=== PATIENT | male | born 1940 | race Caucasian/White ===

== ENCOUNTER → 2016-09-11 | Outpatient (CLI) | payer MEDICARE | END | disposition home or self-care (01) | LOC: LAB 11:19 | PROVIDERS: ATTEND Internal Medicine | DX: C92.10 Chronic myeloid leukemia, BCR/ABL-positive, not having achieved remission (principal); R06.02 Shortness of breath | CPT/HCPCS: 36415; 83880; 85025; 85379 ==

== ENCOUNTER → 2016-09-11 | Outpatient (CLI) | payer MEDICARE | END | disposition home or self-care (01) | LOC: CFH 10:42 | PROVIDERS: ATTEND Internal Medicine | DX: J90 Pleural effusion, not elsewhere classified (principal) | CPT/HCPCS: 71020 ==

== ENCOUNTER → 2016-11-05 | Outpatient (CLI) | payer MEDICARE ==
[~2016-11-05] MED LIST: LIDOCAINE 2%, 20ML ONE
[2016-11-05 13:10] LABS: CYTOLOGY BODY FLUID RECD INTO PATHOLOGY; CYTOLOGY BODY FLUID SOURCE PLEURAL FLUID
== END | disposition home or self-care (01) ==
LOC: RAD 11:17
PROVIDERS: ATTEND Internal Medicine Hematology & Oncology
DX: J90 Pleural effusion, not elsewhere classified (principal); J98.11 Atelectasis; C92.10 Chronic myeloid leukemia, BCR/ABL-positive, not having achieved remission
CPT/HCPCS: 32555; 71020; 82150; 82945; 83615; 83986; 84157; 87015; 87070; 87075; 87102; 87116; 87205; 87206; 88112; 89051; J3490

== ENCOUNTER 2016-12-28 15:03 | Inpatient (IN) | payer MEDICARE ==
[~2016-12-28] VITALS: Ht 177.8 cm; Wt 94.8 kg
[2016-12-28] MEDS ORDERED: SODIUM CHLORIDE 0.9% 1,000 ML IV ONE (15:23)
[2016-12-28] MEDS ORDERED: PIPERACILLIN/TAZO/PMX 4.5GM 100 ML IVPB ONE (15:30)
[2016-12-28] MEDS ORDERED: SODIUM CHLORIDE 0.9% 1,000ML IVBOLUS ONE (15:30)
[2016-12-28] MEDS ORDERED: VANCOMYCIN PER PHARMACY MC ONE (15:30)
[2016-12-28] MEDS ORDERED: ACETAMINOPHEN 325 MG TABLET PO ONE (15:30)
[2016-12-28] MEDS ORDERED: ACETAMINOPHEN 325 MG TABLET ONE (15:47)
[2016-12-28 15:55] LABS: HEMATOCRIT 43.1 % (39.2-51.8); HEMOGLOBIN 14.3 g/dL (13.7-18.0); WHITE BLOOD COUNT 8.5 x10^3/uL (3.4-10)
[2016-12-28] MEDS ORDERED: VANCOMYCIN 1,800 MG in SODIUM CHLORIDE 0.9% 250 ML IV ONE (16:00)
[2016-12-28] MEDS ORDERED: PHARMACOKINETIC CONSULTATION MC ONE ×2 (16:00→21:00)
[2016-12-28 16:09] LABS: ASPARTATE AMINO TRANSFERASE 23 U/L (15-37); BLOOD UREA NITROGEN 13 mg/dL (7-18)
[2016-12-28] MEDS ORDERED: DIPH,PERTUSS(ACELL),TET VAC/PF 0.5 ML IM-VACC ONE ×2 (16:30→17:45)
[2016-12-28 16:48] LABS: PATH.CAST-FLAG NOT PRESENT; SPERM-FLAG NOT PRESENT; SRC-FLAG NOT PRESENT; XTAL-FLAG NOT PRESENT; YLC-FLAG NOT PRESENT
[2016-12-28] MEDS ORDERED: ALLO100T30 PO (17:43)
[2016-12-28] MEDS ORDERED: LISI40TA PO (17:43)
[2016-12-28] MEDS ORDERED: ATOR40TA78 PO (17:43)
[2016-12-28] MEDS ORDERED: TRAV5DRO OP (17:43)
[2016-12-28] MEDS ORDERED: DASA100T PO (17:43)
[2016-12-28 19:41] VITALS: BP 144/80
[2016-12-28] MEDS ORDERED: ONDANSETRON ODT 4 MG PO PRN (20:30)
[2016-12-28] MEDS ORDERED: TEMAZEPAM 15 MG CAPSULE PO PRN (20:30)
[2016-12-28] MEDS ORDERED: DOCUSATE 100 MG CAPSULE PO PRN (20:30)
[2016-12-28] MEDS ORDERED: VANCOMYCIN PER PHARMACY MC PRN (20:30)
[2016-12-28] MEDS ORDERED: ENALAPRILAT 1.25 MG/ML, 2ML IVPush PRN (20:30)
[2016-12-28] MEDS ORDERED: ACETAMINOPHEN 325 MG TABLET PO PRN (21:00)
[2016-12-28] MEDS ORDERED: PHARMACOKINETIC MONITORING MC PRN (21:00)
[2016-12-28] MEDS: ATORVASTATIN 40 MG TABLET PO SCH (21:43)
[2016-12-28] MEDS: SODIUM CHLORIDE 0.9% 1,000 ML IV SCH (21:43)
[2016-12-28] MEDS: LISINOPRIL 20 MG TABLET PO SCH (21:44)
[2016-12-28] MEDS: ENOXAPARIN 40 MG/0.4 ML SQ SCH (21:45)
[2016-12-28] MEDS: GUAIFENESIN 100 MG/5 ML, 10ML UDC PO PRN (21:49)
[2016-12-28] MEDS: TRAVOPROST OPHTH 0.004%, 2.5ML OP SCH (22:18)
[2016-12-29 01:02] VITALS: BP 140/70
[2016-12-29] MEDS: PIPERACILLIN/TAZO/PMX 4.5GM 100 ML IV SCH ×2 (01:13→09:23)
[2016-12-29] MEDS: GUAIFENESIN 100 MG/5 ML, 10ML UDC PO PRN ×3 (04:30→22:02)
[2016-12-29] MEDS: SODIUM CHLORIDE 0.9% 1,000 ML IV SCH ×3 (04:31→18:38)
[2016-12-29 04:34] LABS: HEMATOCRIT 40.3 % (39.2-51.8); HEMOGLOBIN 13.6 g/dL (13.7-18.0); WHITE BLOOD COUNT 6.6 x10^3/uL (3.4-10)
[2016-12-29 04:45] LABS: BLOOD UREA NITROGEN 11 mg/dL (7-18)
[2016-12-29 07:30] VITALS: BP 140/69
[2016-12-29] MEDS: ALLOPURINOL 100 MG TABLET PO SCH (08:55)
[2016-12-29] MEDS: DASATINIB 100 MG HOMEMEDPO SCH (09:00)
[2016-12-29 13:55] VITALS: BP 129/71
[2016-12-29] MEDS: MEROPENEM 1 GM in SODIUM CHLORIDE 0.9% 100 ML IV SCH ×2 (14:38→21:26)
[2016-12-29] MEDS: VANCOMYCIN 1,800 MG in SODIUM CHLORIDE 0.9% 250 ML IV SCH (18:36)
[2016-12-29] MEDS: TRAVOPROST OPHTH 0.004%, 2.5ML OP SCH (20:35)
[2016-12-29] MEDS: LISINOPRIL 20 MG TABLET PO SCH (20:37)
[2016-12-29] MEDS: ATORVASTATIN 40 MG TABLET PO SCH (20:37)
[2016-12-29 20:59] VITALS: BP 161/75
[2016-12-29] MEDS: ENOXAPARIN 40 MG/0.4 ML SQ SCH (21:26)
[2016-12-30 02:56] VITALS: BP 138/73
[2016-12-30 04:35] LABS: HEMATOCRIT 39.1 % (39.2-51.8); WHITE BLOOD COUNT 6.5 x10^3/uL (3.4-10)
[2016-12-30 04:47] LABS: BLOOD UREA NITROGEN 10 mg/dL (7-18)
[2016-12-30] MEDS: SODIUM CHLORIDE 0.9% 1,000 ML IV SCH ×2 (05:08→11:23)
[2016-12-30] MEDS: MEROPENEM 1 GM in SODIUM CHLORIDE 0.9% 100 ML IV SCH ×3 (05:09→20:08)
[2016-12-30 07:30] VITALS: BP 145/78
[2016-12-30] MEDS: ALLOPURINOL 100 MG TABLET PO SCH (07:59)
[2016-12-30] MEDS: GUAIFENESIN 100 MG/5 ML, 10ML UDC PO PRN (07:59)
[2016-12-30] MEDS: DASATINIB 100 MG HOMEMEDPO SCH (07:59)
[2016-12-30] MEDS ORDERED: POTASSIUM PHOSPHATE 44 MEQ in SODIUM CHLORIDE 0.9% 500 ML IV ONE (10:00)
[2016-12-30 12:30] VITALS: BP 159/84
[2016-12-30] MEDS: VANCOMYCIN 1,800 MG in SODIUM CHLORIDE 0.9% 250 ML IV SCH (17:24)
[2016-12-30] MEDS ORDERED: FUROSEMIDE 20 MG/2 ML IV ONE (18:30)
[2016-12-30 19:46] VITALS: BP_SYST 181; BP_SYST 182; BP_DIAS 78; BP_DIAS 98
[2016-12-30] MEDS: TRAVOPROST OPHTH 0.004%, 2.5ML OP SCH (20:08)
[2016-12-30] MEDS: ENOXAPARIN 40 MG/0.4 ML SQ SCH (20:08)
[2016-12-30] MEDS: ATORVASTATIN 40 MG TABLET PO SCH (20:08)
[2016-12-30] MEDS: LISINOPRIL 20 MG TABLET PO SCH (20:09)
[2016-12-31 00:42] VITALS: BP 167/73
[2016-12-31 05:21] LABS: BLOOD UREA NITROGEN 10 mg/dL (7-18)
[2016-12-31 05:22] LABS: HEMATOCRIT 39.9 % (39.2-51.8); HEMOGLOBIN 13.2 g/dL (13.7-18.0); WHITE BLOOD COUNT 5.1 x10^3/uL (3.4-10)
[2016-12-31] MEDS: MEROPENEM 1 GM in SODIUM CHLORIDE 0.9% 100 ML IV SCH ×3 (05:26→21:23)
[2016-12-31 05:31] VITALS: BP 154/74
[2016-12-31 07:16] VITALS: BP 132/73
[2016-12-31] MEDS: DASATINIB 100 MG HOMEMEDPO SCH (07:20)
[2016-12-31] MEDS: ALLOPURINOL 100 MG TABLET PO SCH (07:22)
[2016-12-31] MEDS ORDERED: POTASSIUM CHLORIDE 40 MEQ in SODIUM CHLORIDE 0.9% 500 ML IV ONE (09:30)
[2016-12-31] MEDS ORDERED: POTASSIUM PHOSPHATE 44 MEQ in SODIUM CHLORIDE 0.9% 500 ML IV ONE (09:30)
[2016-12-31 13:26] VITALS: BP 156/93
[2016-12-31] MEDS: VANCOMYCIN 1,800 MG in SODIUM CHLORIDE 0.9% 250 ML IV SCH (18:01)
[2016-12-31 19:27] VITALS: BP 177/82
[2016-12-31] MEDS: TRAVOPROST OPHTH 0.004%, 2.5ML OP SCH (20:45)
[2016-12-31] MEDS: ATORVASTATIN 40 MG TABLET PO SCH (20:46)
[2016-12-31] MEDS: ENOXAPARIN 40 MG/0.4 ML SQ SCH (20:46)
[2016-12-31] MEDS: LISINOPRIL 20 MG TABLET PO SCH (20:46)
[2017-01-01 01:48] VITALS: BP 170/80
[2017-01-01 04:59] LABS: HEMATOCRIT 39.7 % (39.2-51.8); HEMOGLOBIN 13.2 g/dL (13.7-18.0); WHITE BLOOD COUNT 4.3 x10^3/uL (3.4-10)
[2017-01-01 05:11] LABS: BLOOD UREA NITROGEN 10 mg/dL (7-18)
[2017-01-01] MEDS: MEROPENEM 1 GM in SODIUM CHLORIDE 0.9% 100 ML IV SCH (05:38)
[2017-01-01 07:36] VITALS: BP 149/96
[2017-01-01] MEDS: ALLOPURINOL 100 MG TABLET PO SCH (08:28)
[2017-01-01] MEDS: DASATINIB 100 MG HOMEMEDPO SCH (08:28)
[2017-01-01] MEDS ORDERED: VANCOMYCIN 1,900 MG in SODIUM CHLORIDE 0.9% 250 ML IV SCH (10:00)
[2017-01-01] MEDS ORDERED: DOCU-131 PO (12:48)
[2017-01-01] MEDS ORDERED: DOXY100T10 PO (12:48)
[2017-01-01] MEDS ORDERED: CEFD300C37 PO (12:48)
[2017-01-01] MEDS ORDERED: MULT-412 PO (12:51)
== END 2017-01-01 14:00 | disposition home or self-care (01) | DRG 602 ==
LOC: ED 15:31 → EDIP 18:11 → 3NW 19:22
PROVIDERS: ADMIT Internal Medicine; ATTEND Internal Medicine
DX: L03.211 Cellulitis of face (principal); J15.9 Unspecified bacterial pneumonia; C92.10 Chronic myeloid leukemia, BCR/ABL-positive, not having achieved remission; I11.9 Hypertensive heart disease without heart failure; E87.1 Hypo-osmolality and hyponatremia; J98.11 Atelectasis; E83.39 Other disorders of phosphorus metabolism; E78.5 Hyperlipidemia, unspecified; E87.6 Hypokalemia; S50.312A Abrasion of left elbow, initial encounter; Z80.1 Family history of malignant neoplasm of trachea, bronchus and lung; Z80.42 Family history of malignant neoplasm of prostate
CPT/HCPCS: 36415; 71010; 80048; 80053; 80202; 81001; 83605; 83735; 84100; 84145; 85025; 85610; 87040; 87324; 90471; 90715; 93005; 96361; 96365; J1650; J2185; J2543; J3370; J3480; J1940; J7030; J7040; J7050

== ENCOUNTER → 2017-04-01 | Outpatient (CLI) | payer MEDICARE ==
[~2017-04-01] MED LIST changes: +ALLO100T30 PO; +ATOR40TA78 PO; +CEFD300C37 PO; +DASA100T PO; +DOCU-131 PO; +DOXY100T10 PO; -LIDOCAINE 2%, 20ML ONE; +LISI40TA PO; +MULT-412 PO; +TRAV5DRO OP
== END | disposition home or self-care (01) ==
LOC: CFH 09:13
PROVIDERS: ATTEND Internal Medicine
DX: J32.0 Chronic maxillary sinusitis (principal); J32.2 Chronic ethmoidal sinusitis; J32.1 Chronic frontal sinusitis
CPT/HCPCS: 70551

== ENCOUNTER → 2017-04-06 | Outpatient (CLI) | payer MEDICARE | END | disposition home or self-care (01) | LOC: CVU 13:50 | PROVIDERS: ATTEND Internal Medicine | DX: I08.0 Rheumatic disorders of both mitral and aortic valves (principal); I31.3 Pericardial effusion (noninflammatory); J90 Pleural effusion, not elsewhere classified; I65.23 Occlusion and stenosis of bilateral carotid arteries; I10 Essential (primary) hypertension; Z85.6 Personal history of leukemia | CPT/HCPCS: 93306; 93880 ==

== ENCOUNTER → 2017-05-05 | Outpatient (CLI) | payer MEDICARE ==
[~2017-05-05] MED LIST changes: +OMNIPAQUE 350 MG/ML, 75ML BOTTLE ONE
== END | disposition home or self-care (01) ==
LOC: CFH 12:58
PROVIDERS: ATTEND Internal Medicine
DX: J90 Pleural effusion, not elsewhere classified (principal); J98.11 Atelectasis; J84.10 Pulmonary fibrosis, unspecified; R91.1 Solitary pulmonary nodule; I31.3 Pericardial effusion (noninflammatory)
CPT/HCPCS: 71260; 82565; Q9967

== ENCOUNTER → 2017-05-14 | Outpatient (CLI) | payer MEDICARE ==
[~2017-05-14] MED LIST changes: +LIDOCAINE 1%, 10ML ONE; -OMNIPAQUE 350 MG/ML, 75ML BOTTLE ONE
== END ==
LOC: RAD 07:30
PROVIDERS: ATTEND Internal Medicine
DX: J90 Pleural effusion, not elsewhere classified (principal)
CPT/HCPCS: 32555; 71045; J3490

== ENCOUNTER → 2017-06-23 | Outpatient (CLI) | payer MEDICARE ==
[~2017-06-23] MED LIST changes: -LIDOCAINE 1%, 10ML ONE
== END | disposition home or self-care (01) ==
LOC: RAD 10:24
PROVIDERS: ATTEND Internal Medicine Hematology & Oncology
DX: R91.8 Other nonspecific abnormal finding of lung field (principal); C92.10 Chronic myeloid leukemia, BCR/ABL-positive, not having achieved remission
CPT/HCPCS: 71046

== ENCOUNTER → 2017-07-03 | Outpatient (CLI) | payer MEDICARE | END | disposition home or self-care (01) | LOC: RAD 12:52 | PROVIDERS: ATTEND Internal Medicine | DX: J90 Pleural effusion, not elsewhere classified (principal) | CPT/HCPCS: 71046 ==

== ENCOUNTER → 2017-07-06 | Outpatient (CLI) | payer MEDICARE | END | disposition home or self-care (01) | LOC: RAD 11:50 | PROVIDERS: ATTEND Internal Medicine | DX: I31.3 Pericardial effusion (noninflammatory) (principal); J90 Pleural effusion, not elsewhere classified | CPT/HCPCS: 71250 ==

== ENCOUNTER → 2017-07-07 | Outpatient (CLI) | payer MEDICARE ==
[~2017-07-07] MED LIST changes: +LIDOCAINE 1%, 20ML ONE
== END ==
LOC: RAD 13:38
PROVIDERS: ATTEND Internal Medicine
DX: J90 Pleural effusion, not elsewhere classified (principal)
CPT/HCPCS: 32555; 71045; J3490

== ENCOUNTER → 2017-08-03 | Outpatient (CLI) | payer MEDICARE ==
[~2017-08-03] MED LIST changes: -LIDOCAINE 1%, 20ML ONE; +LIDOCAINE 2%, 10ML ONE
== END | disposition home or self-care (01) ==
LOC: RAD 09:15
PROVIDERS: ATTEND Thoracic Surgery (Cardiothoracic Vascular Surgery)
DX: J90 Pleural effusion, not elsewhere classified (principal)
CPT/HCPCS: 32555; J3490

== ENCOUNTER → 2017-08-18 | Outpatient (CLI) | payer MEDICARE ==
[~2017-08-18] MED LIST changes: -LIDOCAINE 2%, 10ML ONE; +LIDOCAINE-MPF 1%, 5ML ONE
== END | disposition home or self-care (01) ==
LOC: RAD 11:37
PROVIDERS: ATTEND Thoracic Surgery (Cardiothoracic Vascular Surgery)
DX: J90 Pleural effusion, not elsewhere classified (principal)
CPT/HCPCS: 32555

== ENCOUNTER 2017-08-26 07:36 | Inpatient (IN) | payer MEDICARE ==
[~2017-08-26] VITALS: Ht 177.8 cm; Wt 77.4 kg
[~2017-08-26 07:36] MED LIST changes: +BUPIVACAINE/PF 0.5% ONE; +EPINEPHRINE 1 MG/ML, 1ML ONE; -LIDOCAINE-MPF 1%, 5ML ONE
[2017-08-26] MEDS ORDERED: LACTATED RINGERS 1,000 ML IV SCH (08:07)
[2017-08-26] MEDS ORDERED: ONDANSETRON ODT 8 MG ONE (08:15)
[2017-08-26] MEDS ORDERED: ACETAMINOPHEN 500 MG TABLET ONE (08:15)
[2017-08-26] MEDS ORDERED: OXYcodone IR 5MG TABLET ONE (08:16)
[2017-08-26] MEDS ORDERED: GABAPENTIN 300 MG CAPSULE ONE (08:16)
[2017-08-26] MEDS ORDERED: FENTANYL PF 100 MCG/2ML ONE ×2 (08:24→10:08)
[2017-08-26] MEDS ORDERED: GABAPENTIN 300 MG CAPSULE PO ONE (08:30)
[2017-08-26] MEDS ORDERED: ACETAMINOPHEN 500 MG TABLET PO ONE (08:30)
[2017-08-26] MEDS ORDERED: OXYcodone IR 5MG TABLET PO ONE (08:30)
[2017-08-26] MEDS ORDERED: ONDANSETRON ODT 8 MG PO ONE (08:30)
[2017-08-26] MEDS ORDERED: PHENYLEPHRINE 10 MG/ML ONE (09:05)
[2017-08-26] MEDS ORDERED: LIDOCAINE-MPF 1%, 5ML ONE (09:05)
[2017-08-26] MEDS ORDERED: ROCURONIUM 10 MG/ML,10ML ONE (09:49)
[2017-08-26] MEDS ORDERED: CEFAZOLIN 1,000 MG ONE (09:49)
[2017-08-26] MEDS ORDERED: ONDANSETRON 2MG/ML, 2ML ONE (09:49)
[2017-08-26] MEDS ORDERED: NEOSTIGMINE 1 MG/ML, 10ML ONE (09:49)
[2017-08-26] MEDS ORDERED: DEXAMETHASONE 4 MG/ML, 1ML ONE (09:49)
[2017-08-26] MEDS ORDERED: PROPOFOL 10 MG/ML, 20ML ONE (09:49)
[2017-08-26] MEDS ORDERED: SUCCINYLCHOLINE 20 MG/ML, 10ML ONE (09:49)
[2017-08-26] MEDS ORDERED: GLYCOPYRROLATE 0.2MG/1ML, 5ML ONE (09:49)
[2017-08-26] MEDS: LACTATED RINGERS 1,000 ML IV SCH ×2 (09:58→22:24)
[2017-08-26] MEDS ORDERED: LORazepam 1MG TABLET PO PRN (10:00)
[2017-08-26] MEDS ORDERED: OXYcodone 5 MG/5 ML ORAL.SOL UDC PO PRN (10:00)
[2017-08-26] MEDS ORDERED: hydrALAzine 20 MG/ML, 1ML IVPush PRN (10:00)
[2017-08-26] MEDS ORDERED: hydrALAzine 20 MG/ML, 1ML IV PRN (10:00)
[2017-08-26] MEDS ORDERED: LORazepam 2 MG/ML, 1ML IVPush PRN ×2 (10:00)
[2017-08-26] MEDS ORDERED: morphine SULFATE 10 MG/ML, 1ML IV PRN (10:00)
[2017-08-26] MEDS ORDERED: DIPHENHYDRAMINE 25 MG CAPSULE PO PRN (10:00)
[2017-08-26] MEDS ORDERED: ALBUTEROL SULFATE 2.5 MG/3 ML NPPB PRN (10:00)
[2017-08-26] MEDS ORDERED: ALBUTEROL/IPRATROPIUM 2.5MG/0.5MG, 3 ML NPPB PRN (10:00)
[2017-08-26] MEDS ORDERED: PROMETHAZINE 25 MG/ML, 1ML IV PRN (10:00)
[2017-08-26] MEDS ORDERED: MIDAZOLAM 1 MG/ML, 2ML IV PRN (10:00)
[2017-08-26] MEDS ORDERED: ONDANSETRON 2MG/ML, 2ML IVPush PRN ×2 (10:00)
[2017-08-26] MEDS ORDERED: morphine SULFATE 10 MG/ML, 1ML IVPush PRN (10:00)
[2017-08-26] MEDS ORDERED: DIPHENHYDRAMINE 50 MG/ML, 1ML IVPush PRN (10:00)
[2017-08-26] MEDS ORDERED: ENALAPRILAT 1.25 MG/ML, 2ML IVPush PRN (10:00)
[2017-08-26] MEDS: FAMOTIDINE 20 MG/2 ML IVPush SCH ×2 (10:00→22:00)
[2017-08-26] MEDS: DASATINIB 100 MG PO SCH (10:00)
[2017-08-26] MEDS ORDERED: MEPERIDINE/PF 25MG/0.5ML IVPush PRN (10:00)
[2017-08-26] MEDS ORDERED: LABETALOL 5MG/ML, 20ML IV PRN (10:00)
[2017-08-26] MEDS: FENTANYL PF 100 MCG/2ML IV PRN ×3 (10:10→10:26)
[2017-08-26] MEDS ORDERED: DOXYCYCLINE 100 MG INTRAPL ONE (10:30)
[2017-08-26] MEDS ORDERED: MORPHINE SULFATE 4 MG/ML, 1ML ONE (10:32)
[2017-08-26] MEDS ORDERED: LABETALOL 5MG/ML, 20ML ONE (11:20)
[2017-08-26] MEDS ORDERED: ONDANSETRON ODT 4 MG PO PRN ×2 (11:30)
[2017-08-26] MEDS: FAMOTIDINE 20 MG TABLET PO SCH ×2 (12:46→22:22)
[2017-08-26] MEDS: ALLOPURINOL 100 MG TABLET PO SCH (12:47)
[2017-08-26 15:39] VITALS: BP 96/53
[2017-08-26 20:12] VITALS: BP 115/61
[2017-08-26 21:54] VITALS: BP 111/64
[2017-08-26] MEDS: ATORVASTATIN 40 MG TABLET PO SCH (22:23)
[2017-08-26] MEDS: LISINOPRIL 20 MG TABLET PO SCH (22:23)
[2017-08-27 01:27] VITALS: BP 116/61
[2017-08-27 04:49] LABS: ANION GAP 6 mmol/L (5-15); CALCIUM 8.1 mg/dL (8.5-10.1); CHLORIDE 106 mmol/L (98-107); CREATININE 1.32 mg/dL (0.7-1.3)
[2017-08-27 04:52] LABS: BASOPHILS # (AUTO) 0.01 x10^3/uL (0-0.1); BASOPHILS % (AUTO) 0 % (0-1); EOSINOPHILS # (AUTO) 0.01 x10^3/uL (0-0.4); EOSINOPHILS % (AUTO) 0 % (1-7); LYMPHOCYTES # (AUTO) 1.49 x10^3/uL (1-3.4); LYMPHOCYTES % (AUTO) 20 % (22-44); MD NO; MEAN CORPUSCULAR HEMOGLOBIN 31.9 pg (27.5-34.5); MEAN CORPUSCULAR HGB CONC 33.3 g/dL (33.2-36.2); MEAN CORPUSCULAR VOLUME 95.6 fL (81-97); MEAN PLATELET VOLUME 7.1 fL (7.4-10.4); MONOCYTES % (AUTO) 8 % (2-9); NEUTROPHILS # (AUTO) 5.22 x10^3/uL (1.8-6.8); NEUTROPHILS % (AUTO) 71 % (42-75); PLATELET COUNT 214 x10^3/uL (130-400); RED CELL DISTRIBUTION WIDTH 15.9 % (9.4-14.8)
[2017-08-27 07:25] VITALS: BP 124/66
[2017-08-27] MEDS: FAMOTIDINE 20 MG TABLET PO SCH ×2 (08:01→21:40)
[2017-08-27] MEDS: ALLOPURINOL 100 MG TABLET PO SCH (08:01)
[2017-08-27] MEDS: FAMOTIDINE 20 MG/2 ML IVPush SCH ×2 (08:01→22:00)
[2017-08-27] MEDS: LACTATED RINGERS 1,000 ML IV SCH (08:01)
[2017-08-27] MEDS: DASATINIB 100 MG PO SCH (08:02)
[2017-08-27] MEDS: ENOXAPARIN 40 MG/0.4 ML SQ SCH (08:02)
[2017-08-27 14:02] VITALS: BP 117/60
[2017-08-27 19:00] VITALS: BP 163/73
[2017-08-27] MEDS: ATORVASTATIN 40 MG TABLET PO SCH (21:41)
[2017-08-27] MEDS: LISINOPRIL 20 MG TABLET PO SCH (21:42)
[2017-08-27] MEDS: HYDROcodone/APAP 5/325 TABLET PO PRN (22:50)
[2017-08-28 02:01] VITALS: BP 134/70
[2017-08-28] MEDS: HYDROcodone/APAP 5/325 TABLET PO PRN (05:08)
[2017-08-28 08:12] VITALS: BP 134/75
[2017-08-28] MEDS ORDERED: SPRYCEL 100 MG PO SCH (09:00)
[2017-08-28] MEDS ORDERED: SPRYCEL 100 MG HOMEMEDPO SCH (09:00)
[2017-08-28] MEDS: FAMOTIDINE 20 MG TABLET PO SCH ×2 (09:21→20:45)
[2017-08-28] MEDS: ENOXAPARIN 40 MG/0.4 ML SQ SCH (09:21)
[2017-08-28] MEDS: DASATINIB 100 MG PO SCH (09:24)
[2017-08-28] MEDS: ALLOPURINOL 100 MG TABLET PO SCH (09:24)
[2017-08-28] MEDS: FAMOTIDINE 20 MG/2 ML IVPush SCH (09:26)
[2017-08-28] MEDS: DOCUSATE 50 MG/5 ML, 10ML UDC NG SCH (10:00)
[2017-08-28] MEDS ORDERED: LACTULOSE 20 GM/30 ML UDC PO PRN (10:00)
[2017-08-28] MEDS: DOCUSATE 100 MG CAPSULE PO SCH (10:45)
[2017-08-28 16:08] VITALS: BP 158/75
[2017-08-28] MEDS: BISACODYL 10 MG SUPP PR PRN (18:34)
[2017-08-28] MEDS: ACETAMINOPHEN 325 MG TABLET PO PRN (18:34)
[2017-08-28] MEDS: SENNOSIDES 8.8 MG/5 ML ORAL SOL NG SCH (20:35)
[2017-08-28] MEDS: SENNA/DOCUSATE TABLET PO SCH (20:45)
[2017-08-28] MEDS: ATORVASTATIN 40 MG TABLET PO SCH (20:45)
[2017-08-28] MEDS: LISINOPRIL 20 MG TABLET PO SCH (20:45)
[2017-08-28 20:46] VITALS: BP 151/71
[2017-08-29 01:39] VITALS: BP 145/77
[2017-08-29] MEDS: ACETAMINOPHEN 325 MG TABLET PO PRN ×2 (02:04→11:25)
[2017-08-29 04:51] LABS: ANION GAP 5 mmol/L (5-15); CALCIUM 8.6 mg/dL (8.5-10.1); CHLORIDE 108 mmol/L (98-107); CREATININE 0.83 mg/dL (0.7-1.3)
[2017-08-29 05:04] LABS: BASOPHILS % (AUTO) 0 % (0-1); EOSINOPHILS # (AUTO) 0.11 x10^3/uL (0-0.4); EOSINOPHILS % (AUTO) 3 % (1-7); LYMPHOCYTES # (AUTO) 1.02 x10^3/uL (1-3.4); LYMPHOCYTES % (AUTO) 25 % (22-44); MD NO; MEAN CORPUSCULAR HEMOGLOBIN 32.2 pg (27.5-34.5); MEAN CORPUSCULAR HGB CONC 34.1 g/dL (33.2-36.2); MEAN CORPUSCULAR VOLUME 94.5 fL (81-97); MEAN PLATELET VOLUME 7.1 fL (7.4-10.4); MONOCYTES # (AUTO) 0.37 x10^3/uL (0.2-0.8); MONOCYTES % (AUTO) 9 % (2-9); NEUTROPHILS # (AUTO) 2.58 x10^3/uL (1.8-6.8); NEUTROPHILS % (AUTO) 63 % (42-75); PLATELET COUNT 171 x10^3/uL (130-400); RED BLOOD COUNT 3.93 x10^6/uL (4.38-5.82); RED CELL DISTRIBUTION WIDTH 15.6 % (9.4-14.8)
[2017-08-29 07:24] VITALS: BP 159/88
[2017-08-29] MEDS: DOCUSATE 100 MG CAPSULE PO SCH (08:33)
[2017-08-29] MEDS: ALLOPURINOL 100 MG TABLET PO SCH (08:33)
[2017-08-29] MEDS: FAMOTIDINE 20 MG TABLET PO SCH ×2 (08:33→19:43)
[2017-08-29] MEDS: ENOXAPARIN 40 MG/0.4 ML SQ SCH (08:33)
[2017-08-29] MEDS: DOCUSATE 50 MG/5 ML, 10ML UDC NG SCH (08:34)
[2017-08-29] MEDS: DASATINIB 100 MG PO SCH (08:34)
[2017-08-29 13:07] VITALS: BP 128/70
[2017-08-29 19:21] VITALS: BP 168/73
[2017-08-29] MEDS: SENNOSIDES 8.8 MG/5 ML ORAL SOL NG SCH (19:28)
[2017-08-29] MEDS: LISINOPRIL 20 MG TABLET PO SCH (19:42)
[2017-08-29] MEDS: SENNA/DOCUSATE TABLET PO SCH (19:43)
[2017-08-29] MEDS: ATORVASTATIN 40 MG TABLET PO SCH (19:43)
[2017-08-30 00:59] VITALS: BP 168/78
[2017-08-30 07:03] VITALS: BP 163/85
[2017-08-30] MEDS: DOCUSATE 100 MG CAPSULE PO SCH (07:45)
[2017-08-30] MEDS ORDERED: ALLOPURINOL 300 MG TABLET ONE (07:48)
[2017-08-30] MEDS: FAMOTIDINE 20 MG TABLET PO SCH ×2 (07:54→20:44)
[2017-08-30] MEDS: ALLOPURINOL 100 MG TABLET PO SCH (07:54)
[2017-08-30] MEDS: DASATINIB 100 MG PO SCH (07:54)
[2017-08-30] MEDS: ENOXAPARIN 40 MG/0.4 ML SQ SCH (08:03)
[2017-08-30 14:01] VITALS: BP 155/82
[2017-08-30] MEDS: BISACODYL 10 MG SUPP PR PRN (17:26)
[2017-08-30 19:20] VITALS: BP 165/81
[2017-08-30] MEDS: ATORVASTATIN 40 MG TABLET PO SCH (20:44)
[2017-08-30] MEDS: LISINOPRIL 20 MG TABLET PO SCH (20:45)
[2017-08-31 01:44] VITALS: BP 153/76
[2017-08-31 07:43] VITALS: BP 150/80
[2017-08-31] MEDS: ENOXAPARIN 40 MG/0.4 ML SQ SCH (08:19)
[2017-08-31] MEDS: ALLOPURINOL 100 MG TABLET PO SCH (08:19)
[2017-08-31] MEDS: DOCUSATE 100 MG CAPSULE PO SCH (08:19)
[2017-08-31] MEDS: DASATINIB 100 MG PO SCH (08:19)
[2017-08-31] MEDS: FAMOTIDINE 20 MG TABLET PO SCH ×2 (08:19→20:59)
[2017-08-31 15:00] VITALS: BP 149/80
[2017-08-31 19:26] VITALS: BP 154/73
[2017-08-31] MEDS: ATORVASTATIN 40 MG TABLET PO SCH (20:59)
[2017-08-31] MEDS: LISINOPRIL 20 MG TABLET PO SCH (21:00)
[2017-09-01] MEDS: ACETAMINOPHEN 325 MG TABLET PO PRN (00:26)
[2017-09-01 01:52] VITALS: BP 181/80
[2017-09-01 09:00] VITALS: BP 144/76
[2017-09-01] MEDS: DOCUSATE 100 MG CAPSULE PO SCH (09:27)
[2017-09-01] MEDS: FAMOTIDINE 20 MG TABLET PO SCH ×2 (09:27→20:56)
[2017-09-01] MEDS: ALLOPURINOL 100 MG TABLET PO SCH (09:27)
[2017-09-01] MEDS: DASATINIB 100 MG PO SCH (09:27)
[2017-09-01] MEDS: ENOXAPARIN 40 MG/0.4 ML SQ SCH (09:28)
[2017-09-01 13:10] VITALS: BP 146/84
[2017-09-01 19:02] VITALS: BP 149/75
[2017-09-01] MEDS: ATORVASTATIN 40 MG TABLET PO SCH (20:56)
[2017-09-01] MEDS: LISINOPRIL 20 MG TABLET PO SCH (20:56)
[2017-09-02 00:51] VITALS: BP 143/74
[2017-09-02 06:54] VITALS: BP 129/77
[2017-09-02] MEDS: ENOXAPARIN 40 MG/0.4 ML SQ SCH (08:33)
[2017-09-02] MEDS: DOCUSATE 100 MG CAPSULE PO SCH (08:33)
[2017-09-02] MEDS: ALLOPURINOL 100 MG TABLET PO SCH (08:36)
[2017-09-02] MEDS: FAMOTIDINE 20 MG TABLET PO SCH (08:38)
[2017-09-02] MEDS: DASATINIB 100 MG PO SCH (08:39)
[2017-09-02 13:16] VITALS: BP 115/67
[2017-09-02] MEDS ORDERED: HYDR-3240 PO (16:12)
== END 2017-09-02 17:07 | disposition home or self-care (01) | DRG 163 ==
LOC: ORIP 07:36 → 3NW 11:04
PROVIDERS: ADMIT Thoracic Surgery (Cardiothoracic Vascular Surgery); ATTEND Thoracic Surgery (Cardiothoracic Vascular Surgery)
PROC: 0BBN4ZX Excision of Right Pleura, Percutaneous Endoscopic Approach, Diagnostic (ICD-10-PCS; 2017-08-26)
PROC: 0B5N4ZZ Destruction of Right Pleura, Percutaneous Endoscopic Approach (ICD-10-PCS; 2017-08-26)
PROC: 0W9940Z Drainage of Right Pleural Cavity with Drainage Device, Percutaneous Endoscopic Approach (ICD-10-PCS; 2017-08-26)
PROC: 3E0L4GC Introduction of Other Therapeutic Substance into Pleural Cavity, Percutaneous Endoscopic Approach (ICD-10-PCS; principal; 2017-08-26 10:30)
DX: J90 Pleural effusion, not elsewhere classified (principal); N17.0 Acute kidney failure with tubular necrosis; E78.5 Hyperlipidemia, unspecified; I10 Essential (primary) hypertension; Z85.6 Personal history of leukemia
CPT/HCPCS: 36415; 71045; 80048; 85025; 86850; 86900; 88305; C1729; J0171; J0690; J1100; J1650; J2405; J2704; J2710; J3010; J3490; Q0162; J0330; J0360; J2270; J2370; J7120

== ENCOUNTER → 2017-09-22 | Outpatient (CLI) | payer MEDICARE ==
[~2017-09-22] MED LIST changes: -BUPIVACAINE/PF 0.5% ONE; -EPINEPHRINE 1 MG/ML, 1ML ONE; +HYDR-3240 PO
== END | disposition home or self-care (01) ==
LOC: RAD 11:02
PROVIDERS: ATTEND Thoracic Surgery (Cardiothoracic Vascular Surgery)
DX: C92.10 Chronic myeloid leukemia, BCR/ABL-positive, not having achieved remission (principal)
CPT/HCPCS: 71046

== ENCOUNTER → 2017-10-16 | Outpatient (CLI) | payer MEDICARE | LOC: RAD 13:56 | PROVIDERS: ATTEND Internal Medicine Hematology & Oncology | DX: J90 Pleural effusion, not elsewhere classified (principal); C92.10 Chronic myeloid leukemia, BCR/ABL-positive, not having achieved remission | CPT/HCPCS: 71046 ==

== ENCOUNTER → 2017-10-30 | Outpatient (CLI) | payer MEDICARE ==
[~2017-10-30] MED LIST changes: +LIDOCAINE-MPF 1%, 2ML ONE
== END | disposition home or self-care (01) ==
LOC: RAD 11:45
PROVIDERS: ATTEND Internal Medicine Hematology & Oncology
DX: R18.8 Other ascites (principal)
CPT/HCPCS: 49083; J3490

== ENCOUNTER → 2018-02-26 | Outpatient (CLI) | payer MEDICARE ==
[~2018-02-26] MED LIST changes: -LIDOCAINE-MPF 1%, 2ML ONE
== END | disposition home or self-care (01) ==
LOC: CFH 08:10
PROVIDERS: ATTEND Internal Medicine Hematology & Oncology
DX: I31.3 Pericardial effusion (noninflammatory) (principal)
CPT/HCPCS: 71250